=== PATIENT | female | born 1960 | race Hispanic/Latino ===

== ENCOUNTER 2018-05-02 12:40 | Outpatient (CLI) | payer OTHER ==
--- NOTE | 2018-05-02 13:14 | XRay Report ---
LEFT SHOULDER: History: Pain in left shoulder. Routine views demonstrate normal bony and soft tissue structures with normal joint alignment of the shoulder. Bone mineralization is borderline. IMPRESSION: Left shoulder within normal limits.
== END 2018-05-02 12:41 | disposition home or self-care (01) ==
LOC: XRAY 12:40
PROVIDERS: ATTEND Orthopaedic Surgery
DX: M25.512 Pain in left shoulder (principal)